=== PATIENT | female | born 1980 | race Caucasian/White ===

== ENCOUNTER 2017-12-18 15:04 | Emergency (ER) | payer MEDICAID | END 2017-12-18 16:34 | disposition home or self-care (01) | LOC: E/R 15:04 | DX: B34.9 Viral infection, unspecified (principal) | CPT/HCPCS: 99284; Z7502 ==

== ENCOUNTER 2018-06-24 09:17 | Emergency (ER) | payer MEDICAID ==
[2018-06-24] MEDS: ACETAMINOPHEN 500 MG TAB PO (10:01)
[2018-06-24] MEDS: LIDOCAINE/MYLANTA 40 ML BTL PO (11:08)
== END 2018-06-24 11:43 | disposition home or self-care (01) ==
LOC: FTE 09:17
DX: R20.0 Anesthesia of skin (principal); R20.2 Paresthesia of skin; R10.13 Epigastric pain
CPT/HCPCS: 72040; 93005; 99284-25

== ENCOUNTER 2019-04-09 07:32 | Emergency (ER) | payer MEDICAID ==
[2019-04-09] MEDS: ONDANSETRON (ODT) 4 MG TAB ODT (08:51)
[2019-04-09] MEDS: LIDOCAINE/MYLANTA 40 ML BTL PO (08:51)
[2019-04-09 09:04] LABS: ADD MAN DIFF? NO
[2019-04-09 09:17] LABS: ADD UMIC NO; UR ASCORBIC ACID NEGATIVE (NEGATIVE); UR BILIRUBIN (Dip) NEGATIVE (NEGATIVE); UR BLOOD (Dip) NEGATIVE (NEGATIVE); UR CLARITY CLEAR (CLEAR); UR COLOR STRAW (YELLOW); UR GLUCOSE (Dip) NEGATIVE (NEGATIVE); UR KETONES (Dip) NEGATIVE (NEGATIVE); UR LEUKOCYTE ESTERASE (Dip) NEGATIVE Leu/ul (NEGATIVE); UR NITRITE (Dip) NEGATIVE (NEGATIVE); UR SPECIFIC GRAVITY (Dip) 1.015 (1.003-1.030); UR TOTAL PROTEIN (Dip) NEGATIVE (NEGATIVE); UR UROBILINOGEN (Dip) NEGATIVE (NEGATIVE)
[2019-04-09 09:23] LABS: BASOPHILS % 0.5 % (0.0-2.0); EOSINOPHILS # 0.1 10^3/ul (0.0-0.5); HEMATOCRIT 38.6 % (37.0-47.0); HEMOGLOBIN 12.7 g/dl (12.0-16.0); INR 0.89; LYMPHOCYTES # 1.9 10^3/ul (0.8-2.9); LYMPHOCYTES % 31.8 % (15.0-51.0); MEAN CORPUSCULAR HEMOGLOBIN 29.1 pg (29.0-33.0); MEAN CORPUSCULAR HGB CONC 32.9 g/dl (32.0-37.0); MEAN CORPUSCULAR VOLUME 88.3 fl (82.0-101.0); MEAN PLATELET VOLUME 10.1 fl (7.4-10.4); MONOCYTE # 0.4 10^3/ul (0.3-0.9); MONOCYTES % 7.2 % (0.0-11.0); NEUTROPHIL # 3.6 10^3/ul (1.6-7.5); NEUTROPHILS % 59.3 % (39.0-77.0); PLATELET COUNT 270 10^3/UL (140-415); PROTIME 12.2 Sec (11.9-14.9); RED BLOOD COUNT 4.37 10^6/ul (4.20-5.40); RED CELL DISTRIBUTION WIDTH 11.9 % (11.5-14.5)
[2019-04-09 09:30] LABS: ALANINE AMINOTRANSFERASE 35 IU/L (13-69); ALBUMIN 4.2 g/dl (3.3-4.9); ALBUMIN/GLOBULIN RATIO 1.31; ALKALINE PHOSPHATASE 69 IU/L (42-121); ANION GAP 9 (5-13); ASPARTATE AMINO TRANSFERASE 27 IU/L (15-46); BILIRUBIN,INDIRECT 0.4 mg/dl (0-1.1); BILIRUBIN,TOTAL 0.4 mg/dl (0.2-1.3); BLOOD UREA NITROGEN 12 mg/dl (7-20); CALCIUM 9.8 mg/dl (8.4-10.2); CARBON DIOXIDE 29 mmol/L (21-31); CHLORIDE 104 mmol/L (97-110); Estimated GFR > 60 mL/min (>60); GLUCOSE 99 mg/dl (70-220); LIPASE 45 U/L (23-300); POTASSIUM 4.4 mmol/L (3.5-5.1); SODIUM 142 mmol/L (135-144); TOTAL PROTEIN 7.4 g/dl (6.1-8.1)
== END 2019-04-09 10:39 | disposition home or self-care (01) ==
LOC: FTE 10:39
DX: K29.50 Unspecified chronic gastritis without bleeding (principal)
CPT/HCPCS: 36415; 76705; 80053; 81003; 81025; 83690; 85025; 85610; 85730; 99284-25